=== PATIENT | female | born 1950 | race Caucasian/White ===

== ENCOUNTER 2017-08-05 22:22 | Observation (INO) | payer MEDICARE ==
[2017-08-05 23:14] LABS: #Eosinphils 0.2 thou/uL (0.0-0.7); #Lymphocytes 1.7 thou/uL (1.20-3.40); #Monocytes 0.5 thou/uL (0.11-0.59); #Neutrophils 4.7 thou/uL (1.40-6.50); %Basophils 0.4 % (0.0-1.0); %Eosinophils 3.1 % (0.0-10.0); %Lymphocytes 24.1 % (21.0-51.0); %Monocytes 7.1 % (0.0-10.0); %Neutrophils 65.3 % (42.0-75.0); Hemoglobin 13.3 g/dL (12.0-16.0); Mean Corpuscular HGB CONC 34.3 g/dL (32.0-36.0); Mean Corpuscular Hemoglobin 30.6 pg (27.0-31.0); Mean Corpuscular Volume 89.2 fl (81.0-99.0); Mean Platelet Volume 7.7 fL (7.4-10.4); Platelet Count 183 thou/uL (130-400); RBC Distribution Width 12.2 % (11.5-14.5); Red Blood Cell (RBC) Count 4.34 mill/uL (4.20-5.40); White Blood Cell (WBC) Count 7.2 thou/uL (4.8-10.8)
--- NOTE | 2017-08-05 23:22 | CT ---
CT OF THE BRAIN WITHOUT CONTRAST: Comparison: 01-15-16 History: Head numbness that started tonight. The patient has been feeling strange for three days. Technique: Multiple contiguous axial images were obtained in a CT of the brain without contrast. FINDINGS: The brain is normal in morphology and attenuation without focal lesions or confluent areas of infarct ion. There is no evidence of hydrocephalus, intracranial hemorrhage, or extraaxial fluid collection. The calvarium and overlying soft tissues are unremarkable. The visualized paranasal sinuses and masto id air cells are well aerated. IMPRESSION: No evidence of acute intracranial abnormality. POS: [facility]
[2017-08-05 23:34] LABS: ALT (SGPT) 18 U/L (8-55); AST (SGOT) 19 U/L (5-34); Albumin 4.1 g/dL (3.4-4.8); Alkaline Phosphatase 132 U/L (40-150); Anion Gap 13 mmol/L (10-20); BUN (Urea Nitrogen) 13 mg/dL (9.8-20.1); Bilirubin, Total 0.4 mg/dL (0.2-1.2); Calc. Creatinine Clearance 0 mL/min (70-130); Calcium 9.2 mg/dL (7.8-10.44); Carbon Dioxide 24 mmol/L (23-31); Chloride 107 mmol/L (98-107); Estimated GFR-MDRD 62; Glucose 91 mg/dL (80-115); Protein, Total 7.1 g/dL (6.0-8.3); Sodium 140 mmol/L (136-145)
[2017-08-05 23:36] LABS: CKMB 1.3 ng/mL (0-6.6); Troponin I Less than 0.010 ng/mL (< 0.028)
[2017-08-06 01:32] LABS: Bilirubin Negative (Negative); Blood, Urine Negative (Negative); Clarity CLEAR (Clear); Glucose, Urine (Dipstick) Negative (Negative); Leukocyte Trace (Negative); Nitrite Negative (Negative); Protein, Urine (Dipstick) Negative (Neg-Trace); Specific Gravity, Urine 1.014 (1.002-1.036)
[2017-08-06 01:34] LABS: Bacteria/HPF None Seen HPF (None Seen); Hyaline Casts/LPF 0-3 HYALINE CAST LPF (0-3 Hyaline); RBC/HPF 0-3 HPF (0-3); Squamous Epithelial 0-3 HPF (0-3); WBC/HPF 0-3 HPF (0-3)
[2017-08-06] MEDS ORDERED: Guaifenesin DM 100-10/5 ML UDCUP PO PRN (01:42)
[2017-08-06] MEDS ORDERED: PROVENTIL INHALER 6.7 G (200 INHALATIONS) INH PRN (01:42)
[2017-08-06] MEDS ORDERED: clonazePAM 1 MG TAB PO PRN (01:42)
[2017-08-06] MEDS ORDERED: Acetaminophen 325 MG TAB PO PRN (01:42)
[2017-08-06] MEDS ORDERED: traMADol HCl 50 MG TAB PO PRN (01:42)
[2017-08-06] MEDS ORDERED: Senokot 8.6 MG TAB PO PRN (01:42)
--- NOTE | 2017-08-06 02:38 | HP ---
REASON FOR ADMISSION: Rule out transient ischemic attack. HISTORY OF PRESENTING ILLNESS: The patient gives history of having neck pain with radiating to right shoulder yesterday morning. She tried to lay down for some time. After she woke up with pretty bad headache. This was on the right half of her head. The headache was off and on. When the headache was off she was feeling numb. The patient also developed some right lower extremity pain. This was in the knee and going down to the legs. She has no complaints of any specific weakness at present. Her headache is completely resolved. She is moving all 4 extremities with no weakness as such. The patient is right- handed. No complaints of nausea or vomiting. No complaints of chest pain, palpitation, PND or orthopnea. No complaints of fever. PAST MEDICAL AND SURGICAL HISTORY: History of TIA, dyslipidemia, appendectomy, cholecystectomy, hypothyroidism, mood disorder, history of gastric bypass surgery, has had knee surgery. CURRENT MEDICATIONS: Plavix 75 mg p.o. daily, pravastatin daily, levothyroxine 100 mcg daily, Klonopin p.r.n. for anxiety, bupropion, methylphenidate, the exact doses of about 2, she does not recall. ALLERGIES: AMBIEN and SULFA. PERSONAL HISTORY: Does not abuse alcohol or drugs. No history of smoking. FAMILY HISTORY: Mother of renal cell carcinoma. Father was killed in a freak accident at the age of 51 years. Brother of renal cell carcinoma at the age of 61 years. REVIEW OF SYSTEMS: The following complete review of systems was negative, unless otherwise mentioned in the HPI or below: Constitutional: Weight loss or gain, ability to conduct usual activities. Skin: Rash, itching. Eyes: Double vision, pain. ENT/Mouth: Nose bleeding, neck stiffness, pain, tenderness. Cardiovascular: Palpitations, dyspnea on exertion, orthopnea. Respiratory: Shortness of breath, wheezing, cough, hemoptysis, fever or night sweats. Gastrointestinal: Poor appetite, abdominal pain, heartburn, nausea, vomiting, constipation, or diarrhea. Genitourinary: Urgency, frequency, dysuria, nocturia. Musculoskeletal: Pain, swelling. Neurologic/Psychiatric: Anxiety, depression. Allergy/Immunologic: Skin rash, bleeding tendency. PHYSICAL EXAMINATION: GENERAL: The patient is a 67-year-old female, who is currently not in any acute distress. VITAL SIGNS: Blood pressure 160/90, pulse 90 per minute, respiratory rate 18 per minute, temperature 98.3 degrees Fahrenheit, saturating 96% on room air. NECK: Supple with no elevated JVD. HEENT: Eyes: Extraocular muscles intact. Pupils reacting to light. Oral cavity: Mucous membranes are moist. No exudates or congestion. CARDIOVASCULAR: S1, S2 heard. Regular rhythm. RESPIRATORY: Air entry 1+ bilaterally. No rales or rhonchi. ABDOMEN: Soft, bowel sounds heard. No tenderness, rigidity or guarding. EXTREMITIES: No peripheral edema or calf tenderness. VASCULAR SYSTEM: Peripheral pulses 1+ bilateral. No ischemic ulcerations or gangrene. CENTRAL NERVOUS SYSTEM: No gross focal deficits seen. The patient is alert, awake, oriented well. PSYCHIATRIC: The patient's mood is euthymic. No hallucinations or delusions. LABORATORY AND X-RAY FINDINGS: EKG done shows normal sinus rhythm at 61 beats per minute. There is nonspecific ST-T wave changes. CT brain without contrast done shows no acute intracranial abnormalities. First set of cardiac enzymes are negative. Electrolytes are stable. BUN 13, creatinine 0.9, glucose 91. Liver enzymes within normal limits. White count of 7, H and H 13 and 38, platelet count 183, MCV is 89 with 65% neutrophils. CLINICAL IMPRESSION AND PLAN: The patient will be under observation on the stroke unit to rule out transient ischemic attack. All her symptoms that she came for including headache, right lower extremity pain, right shoulder pain all of it has resolved at present. The plan is to ambulate her this morning once physical therapy and occupational therapy are available. If patient ambulates by herself, she can be discharged home. Otherwise, we will continue her on Plavix, aspirin, pravastatin, that she takes at home. We will also continue her mood disorder medications including bupropion, Klonopin and it is unclear why she takes methylphenidate, but the patient does not know if she has attention deficit hyperactivity disorder. We will continue to closely monitor her on the stroke unit. [facility]
[2017-08-06 02:55] VITALS: BMI 32.3
[2017-08-06 05:47] LABS: #Basophils 0.1 thou/uL (0.0-0.2); #Eosinphils 0.2 thou/uL (0.0-0.7); #Lymphocytes 1.9 thou/uL (1.20-3.40); #Monocytes 0.5 thou/uL (0.11-0.59); %Basophils 0.9 % (0.0-1.0); %Eosinophils 3.1 % (0.0-10.0); %Lymphocytes 28.8 % (21.0-51.0); %Monocytes 8.1 % (0.0-10.0); %Neutrophils 59.2 % (42.0-75.0); Hemoglobin 12.7 g/dL (12.0-16.0); Mean Corpuscular HGB CONC 34.4 g/dL (32.0-36.0); Mean Corpuscular Hemoglobin 30.6 pg (27.0-31.0); Mean Corpuscular Volume 89.2 fl (81.0-99.0); Platelet Count 180 thou/uL (130-400); RBC Distribution Width 12.2 % (11.5-14.5); Red Blood Cell (RBC) Count 4.15 mill/uL (4.20-5.40); White Blood Cell (WBC) Count 6.7 thou/uL (4.8-10.8)
[2017-08-06 06:17] LABS: Anion Gap 12 mmol/L (10-20); BUN (Urea Nitrogen) 12 mg/dL (9.8-20.1); Calc. Creatinine Clearance 96 mL/min (70-130); Calcium 9.1 mg/dL (7.8-10.44); Carbon Dioxide 25 mmol/L (23-31); Cardiac Risk 3.1 (Less than 4.5); Chloride 107 mmol/L (98-107); Cholesterol 132 mg/dl (< 200 Desired); Estimated GFR-MDRD 75; Glucose 89 mg/dL (80-115); HDL Cholesterol 43 mg/dL (>60 Neg Risk); LDL Cholesterol, Calculated 72 mg/dL; Potassium 3.5 mmol/L (3.5-5.1); Sodium 140 mmol/L (136-145); Triglycerides 86 mg/dL (Less than 150)
[2017-08-06] MEDS ORDERED: DULoxetine 60 MG CAP PO SCH (09:00)
[2017-08-06] MEDS ORDERED: Enoxaparin Sodium 40 MG/0.4 ML SYRINGE SC SCH ×2 (09:00)
[2017-08-06] MEDS ORDERED: Bupropion 150 MG XL TAB PO SCH (09:00)
[2017-08-06] MEDS ORDERED: Clopidogrel Bisulfate 75 MG TAB PO SCH (09:00)
[2017-08-06] MEDS ORDERED: Prevnar 13-Val Conj/PF 0.5 ML SYRINGE IM ONE (09:00)
[2017-08-06] MEDS ORDERED: METHYLPHENIDATE HCL 20 MG PO SCH (09:00)
[2017-08-06] MEDS ORDERED: Aspirin 81 mg Enteric Coated Tablet PO SCH (09:00)
[2017-08-06 15:51] VITALS: BP 160/73; TEMP 96.7
[2017-08-06] MEDS ORDERED: Simvastatin 5 MG TAB PO SCH (21:00)
--- NOTE | 2017-09-08 15:03 | EKG ---
Test Reason : HEAD NUMBNESS Blood Pressure : / mmHG Vent. Rate : 081 BPM Atrial Rate : 081 BPM P-R Int : 162 ms QRS Dur : 076 ms QT Int : 364 ms P-R-T Axes : 040 -11 028 degrees QTc Int : 422 ms Normal sinus rhythm Cannot rule out Anterior infarct , age undetermined Abnormal ECG Confirmed by FATOU ALVES ([id number]), copy editor ESRA CARDONA ([id number]) on 09/08/2017 3:02:28 PM Referred By: Confirmed By:FATOU ALVES
== END 2017-08-06 18:33 | disposition home or self-care (01) ==
LOC: ERS 22:22 → 2SE 08-06 00:15
PROVIDERS: ADMIT Internal Medicine; ATTEND Internal Medicine
DX: G45.9 Transient cerebral ischemic attack, unspecified (principal); E78.5 Hyperlipidemia, unspecified; E03.9 Hypothyroidism, unspecified; F39 Unspecified mood [affective] disorder; F41.9 Anxiety disorder, unspecified; Z88.2 Allergy status to sulfonamides; Z88.8 Allergy status to other drugs, medicaments and biological substances; Z79.899 Other long term (current) drug therapy; Z98.84 Bariatric surgery status; Z90.49 Acquired absence of other specified parts of digestive tract; Z98.890 Other specified postprocedural states; Z86.73 Personal history of transient ischemic attack (TIA), and cerebral infarction without residual deficits
CPT/HCPCS: 70450; 80048; 80053; 80061; 82553; 84484; 85025 ×2; 90670; 93005; 96372; 97116; 97139 ×3; 97530; 99285; G0009; G0378; G8978; G8979; G8980; G8987; G8988; G8989; 36415; 81003; 81015; 90471; G8996-GN-CI; G8997-GN-CI; J1650

== ENCOUNTER 2018-02-13 00:16 | Emergency (ER) | payer MEDICARE ==
[2018-02-13 01:09] LABS: #Eosinphils 0.3 thou/uL (0.0-0.7); #Lymphocytes 1.1 thou/uL (1.20-3.40); #Monocytes 0.8 thou/uL (0.11-0.59); #Neutrophils 6.1 thou/uL (1.40-6.50); %Basophils 0.5 % (0.0-1.0); %Eosinophils 3.9 % (0.0-10.0); %Lymphocytes 13.2 % (21.0-51.0); %Neutrophils 73.3 % (42.0-75.0); Hemoglobin 13.4 g/dL (12.0-16.0); Mean Corpuscular HGB CONC 35.1 g/dL (32.0-36.0); Mean Corpuscular Hemoglobin 30.7 pg (27.0-31.0); Mean Corpuscular Volume 87.4 fL (78.0-98.0); Mean Platelet Volume 7.6 fL (7.4-10.4); Platelet Count 186 thou/uL (130-400); RBC Distribution Width 12.1 % (11.5-14.5); Red Blood Cell (RBC) Count 4.37 mill/uL (4.20-5.40); White Blood Cell (WBC) Count 8.3 thou/uL (4.8-10.8)
[2018-02-13 01:25] LABS: ALT (SGPT) 32 U/L (8-55); AST (SGOT) 31 U/L (5-34); Alkaline Phosphatase 138 U/L (40-150); Anion Gap 14 mmol/L (10-20); BUN (Urea Nitrogen) 12 mg/dL (9.8-20.1); Bilirubin, Total 0.5 mg/dL (0.2-1.2); Calc. Creatinine Clearance 0 mL/min (70-130); Calcium 9.5 mg/dL (7.8-10.44); Carbon Dioxide 18 mmol/L (23-31); Chloride 111 mmol/L (98-107); Estimated GFR-MDRD 66; Glucose 107 mg/dL (80-115); Potassium 3.5 mmol/L (3.5-5.1); Sodium 139 mmol/L (136-145)
--- NOTE | 2018-02-13 07:51 | ULT ---
ULTRASOUND WITH DOPPLER DUPLEX VENOUS LOWER EXTREMITY BILATERAL: CPT: 66854 ICD-10-PCS: B54D HISTORY: Lower extremity pain. TECHNIQUE: Color flow Doppler, spectral waveform analysis of pulsed Doppler, and plasencia-scale imaging with pennie david and augmentation, were used to evaluate the bilateral common femoral, femoral, popliteal, dexigraph operator ior tibial, and superficial femoral, veins; and the proximal portions of the profunda femoral and gre ater saphenous, veins. FINDINGS: There is appropriate compressibility and flow within the imaged deep vein system of each lower extrem ity without evidence of DVT. IMPRESSION: No deep vein thrombosis of either visualized lower extremity. POS: [facility]
--- NOTE | 2018-02-13 08:08 | RAD ---
RIGHT KNEE 4 VIEWS: HISTORY: Right knee pain. FINDINGS: There are postop changes of total knee arthroplasty in good position and alignment. No fracture, dis location or bony destruction is seen. No periprosthetic lucency is identified to suggest loosening. IMPRESSION: No acute process. POS: [facility]
== END 2018-02-13 02:40 | disposition home or self-care (01) ==
LOC: ERS 00:16
DX: M25.561 Pain in right knee (principal); E78.5 Hyperlipidemia, unspecified; Z86.73 Personal history of transient ischemic attack (TIA), and cerebral infarction without residual deficits; E03.9 Hypothyroidism, unspecified; J45.909 Unspecified asthma, uncomplicated; F41.9 Anxiety disorder, unspecified; F31.9 Bipolar disorder, unspecified; Z79.899 Other long term (current) drug therapy
CPT/HCPCS: 36415; 80053; 85025; 93970

== ENCOUNTER 2018-08-05 22:47 | Observation (INO) | payer MEDICARE, OTHER ==
[2018-08-05 23:27] LABS: #Basophils 0.1 thou/uL (0.0-0.2); #Eosinphils 0.2 thou/uL (0.0-0.7); #Lymphocytes 1.6 thou/uL (1.20-3.40); #Monocytes 0.7 thou/uL (0.11-0.59); #Neutrophils 4.8 thou/uL (1.40-6.50); %Basophils 0.7 % (0.0-1.0); %Eosinophils 2.2 % (0.0-10.0); %Lymphocytes 21.5 % (21.0-51.0); %Monocytes 10.1 % (0.0-10.0); %Neutrophils 65.5 % (42.0-75.0); Hemoglobin 13.8 g/dL (12.0-16.0); Mean Corpuscular HGB CONC 33.4 g/dL (32.0-36.0); Mean Corpuscular Hemoglobin 29.5 pg (27.0-31.0); Mean Corpuscular Volume 88.5 fL (78.0-98.0); Platelet Count 203 thou/uL (130-400); RBC Distribution Width 12.2 % (11.5-14.5); Red Blood Cell (RBC) Count 4.67 mill/uL (4.20-5.40); White Blood Cell (WBC) Count 7.3 thou/uL (4.8-10.8)
--- NOTE | 2018-08-05 23:39 | RAD ---
AP VIEW CHEST: 08/05/2018 HISTORY: Dyspnea. FINDINGS: AP view chest demonstrates calcification of the aorta. The lungs are well aerated. No evidence of a ctive intrathoracic disease is seen. No evidence of effusions, pneumonia, or pneumothorax is seen. IMPRESSION: Unremarkable anterior-posterior view chest. POS: [facility]
--- NOTE | 2018-08-05 23:43 | CT ---
CT BRAIN: 08/05/2018 HISTORY: Fall. Weakness. Lightheadedness. COMPARISON: 08/05/2017 TECHNIQUE: Noncontrast enhanced CT images of the brain are obtained. FINDINGS: Noncontrast enhanced CT images of the brain demonstrate diffuse cortical atrophy. No evidence of acu te intracranial masses, hemorrhages, or strokes seen. IMPRESSION: Unremarkable CT brain. POS: [facility]
[2018-08-05 23:45] LABS: ALT (SGPT) 11 U/L (8-55); AST (SGOT) 18 U/L (5-34); Albumin 4.1 g/dL (3.4-4.8); Alkaline Phosphatase 139 U/L (40-150); Anion Gap 12 mmol/L (10-20); BUN (Urea Nitrogen) 12 mg/dL (9.8-20.1); Bilirubin, Total 0.3 mg/dL (0.2-1.2); Calc. Creatinine Clearance 0 mL/min (70-130); Calcium 9.2 mg/dL (7.8-10.44); Carbon Dioxide 23 mmol/L (23-31); Chloride 109 mmol/L (98-107); Estimated GFR-MDRD 73; Globulin 2.9 g/dL (2.4-3.5); Glucose 76 mg/dL (80-115); Sodium 140 mmol/L (136-145)
[2018-08-05 23:50] LABS: Bilirubin Negative (Negative); Blood, Urine Negative (Negative); Clarity CLEAR (Clear); Glucose, Urine (Dipstick) Negative (Negative); Leukocyte Negative (Negative); Nitrite Negative (Negative); Protein, Urine (Dipstick) Negative (Neg-Trace); Specific Gravity, Urine 1.014 (1.002-1.036)
[2018-08-06] MEDS ORDERED: Aspirin Chewable 81 MG TAB ONE (00:22)
[2018-08-06 02:47] LABS: Troponin I Less than 0.010 ng/mL (< 0.028)
[2018-08-06 05:50] LABS: Troponin I 0.011 ng/mL (< 0.028)
[2018-08-06] MEDS ORDERED: PROVENTIL INHALER 6.7 G (200 INHALATIONS) INH PRN (11:54)
[2018-08-06] MEDS ORDERED: clonazePAM 1 MG TAB PO PRN (11:54)
[2018-08-06] MEDS ORDERED: Ondansetron ODT 4 MG TAB PO PRN (11:54)
[2018-08-06] MEDS ORDERED: Ondansetron PF 4 MG/2 ML Vial IVP PRN (11:54)
[2018-08-06] MEDS ORDERED: Acetaminophen 325 MG TAB PO PRN (11:54)
[2018-08-06] MEDS ORDERED: Ibuprofen 800 MG TAB PO PRN (11:54)
[2018-08-06 12:34] LABS: Cardiac Risk 2.7 (Less than 4.5)
[2018-08-06 12:51] LABS: Free T4 (Free Thyroxine) 1.2 ng/dL (0.70-1.48); Thyroid Stimulating Hormone 0.014 uIU/mL (0.35-4.94)
[2018-08-06 12:58] VITALS: BMI 30.7
[2018-08-06] MEDS: Acyclovir 400 mg Tablet PO SCH ×2 (15:37→20:50)
--- NOTE | 2018-08-06 16:22 | HP ---
PRIMARY CARE PHYSICIAN: Jose Andino MD CHIEF COMPLAINT: "I'm feeling weak and I fell and hit a brick wall." HISTORY OF PRESENT ILLNESS: Ms. Tilley is a pleasant 68-year-old female, who has a history of PTSD and hyperlipidemia as well as hypothyroidism. She was in her usual state of health until a few weeks ago. She says she has been having chest pain off and on. She says that she will have to take up to 6 aspirin in order to get rid of the pain. She says the pain usually starts when she is sitting down or watching TV. She describes it as a squeezing sensation and it can be very severe. Sometimes she has some shortness of breath with it as well and occasionally, she will feel an aching in her hand when it happens and she says sometimes it will start with her hand. She also feels a little dizzy and lightheaded with it as well. She says it can last up to an hour, but she will take aspirin every time in order to get rid of it. She says in addition to this happening, she has been feeling extremely weak and lightheaded and she says that last night, she was visiting her sister, who lives in an apartment what sounds like across the street and she said she was leaving her sister's apartment and she started suddenly feeling weak and then fell and hit a brick wall. She later says that she has had several other episodes of falling. She says she basically gets dizzy and lightheaded and would have to reach across and grab a hold of something. Other symptoms include diarrhea, she says for the last month. She says usually it will start off with stools being kind of soft and then she will have more and more stools, but then they become liquid and then just mucus. There is no blood in the stools and she does have some abdominal cramping. She says that she did have a colonoscopy about 2 years ago at [facility] [place] by Dr. Ryan and they had just seen some polyps and some hemorrhoids. She also complains of night sweats occasionally almost every night, however, and waking up through the night short of breath. She also complains of some dyspnea on exertion and increased swelling in her legs. She also complains of a "nonproductive cough" and this has been going on for off and on for some time. Also, we reviewed her medications and she had quite a few medications at least 3 or 4, which were sedating medications, which have been recommended not to be used in elderly patients. REVIEW OF SYSTEMS: All systems were reviewed and are negative except for that mentioned in the history of present illness. PAST MEDICAL HISTORY: Significant for transient ischemic attack, hyperlipidemia, hypothyroidism, mood disorder, PTSD, generalized anxiety, and she says other psychiatric diseases, which she does not know the names of. PAST SURGICAL HISTORY: Includes an appendectomy when she was 16 years old, cholecystectomy, gastric bypass and it sounds like a redo of the gastric bypass and a Jon-en-Y in [place] and bilateral knee replacement surgeries. ALLERGIES: TO AMBIEN, WHICH CAUSES HER TO GO NUTS; SULFA, WHICH CAUSES ITCHING. SOCIAL HISTORY: She is . She has no children. She is a nonsmoker and nondrinker. She says she never smoke or drink or use any drugs. Her code status is full code. She is retired respiratory therapist. Her sister is her medical or her surrogate decision maker and her name is Do Moore. FAMILY HISTORY: Significant for mother with renal cell carcinoma as well as a brother, who had renal cell carcinoma as well. CURRENT MEDICATIONS: These were taken from two large bags in her room and include: 1. Zofran 40 mg daily. 2. Duloxetine 60 mg daily. 3. Plavix 75 mg daily. 4. VitaMelts once a day. 5. MegaRed and that is an omega-3 fatty acid daily. 6. Biotin daily. 7. Vitamin D3 125 mcg daily. 8. once a day. 9. Acyclovir 400 mg t.i.d. 10. Ibuprofen 800 mg as needed. 11. Prevagen. 12. Bupropion XL 300 mg daily. 13. Pravastatin 40 mg daily. 14. Trazodone 150 mg daily. 15. Clonazepam 1 mg t.i.d. 16. Ritalin, we did not have the dose, daily. PHYSICAL EXAMINATION: GENERAL: She is alert and oriented. She appears to be in no acute distress. She is well-developed and well-nourished. VITAL SIGNS: Blood pressure is 167/85, heart rate 80, respiratory rate of 16, temperature is 97.8. HEENT: Her pupils, the left pupil was slightly smaller than the right, and the pupil was a bit irregular on funduscopic exam. There is no papilledema. Her tympanic membrane on the left is slightly erythematous, but there is no fluid behind the drum. There is no bulging throat. She is edentulous and there is no erythema. NECK: There is no adenopathy, no bruits. LUNGS: Her lungs are clear to auscultation bilaterally. There is no wheezing, no rales, no rhonchi. CARDIOVASCULAR: She had a normal S1, S2. There is no S3 or S4. No murmurs, clicks, or rubs. ABDOMEN: Obese. There is a midline abdominal scar. There is some mild diffuse tenderness. There is no rebound or guarding. No organomegaly. EXTREMITIES: She has got multiple bruises on the lower extremities. There is no calf tenderness. She has got scar for knee replacement, but there is no joint effusion. NEUROLOGIC: Her cranial nerves 2 through 12 are grossly intact. Her muscle strength is 5/5 in both her upper and lower extremities. She was able to do her [id number]-me-pkyo, but she had some difficulty with finger to nose. There is no asterixis. SKIN AND INTEGUMENT: Again, there is some bruising on her lower extremities, but no significant edema. LABORATORY RESULTS AND X-RAY: She had a CT scan of the brain, which was negative for any acute intracranial process. She also had a chest x-ray, which by my reading, her heart size was normal. There were no infiltrates or effusions. On her labs, this was from 08/05/2018, the white blood cell count was 7.3, hemoglobin 13.8, hematocrit was 41.3, and platelet count was 203. Sodium 140, potassium 4.1, chloride was 109, CO2 was 23, BUN of 12, creatinine 0.78, glucose was 76. Urinalysis was negative. She had 3 sets of troponin, which were negative and on her EKG, it was sinus rhythm. She had some voltage criteria for LVH and there were some nonspecific ST-wave changes also by my reading. ASSESSMENT: This is a 68-year-old female, who presented to the emergency room with frequent falls, feeling generally weak, dizzy, lightheaded and also having some chest pain off and on. 1. With the frequent falls and generalized weakness. I suspect this is likely due to polypharmacy. She had multiple medications in her bag including the trazodone, clonazepam, bupropion, which can in elderly patients put them at risk for falls. She is on a fairly high dose of trazodone at night as well as the clonazepam. She is also on Ritalin, which she says she has not had for 3 weeks. I discussed with her that this is the likely cause of the falling and she should discuss this with her primary care physician, so that they can go through her medications and possibly reduce or eliminate some of these sedating medications. 2. Chest pain. She gives some symptoms, which are suspicious for possible angina. She states that she has not had a recent stress test. It is possible that if she had angina, this could result in some generalized weakness as well. Therefore, it seems reasonable to go ahead and get a nuclear stress test on her. 3. Hypothyroidism. We will check her TSH and free T4 and make sure that her thyroid functions are not contributing to her symptoms and we will also get a physical therapy evaluation. Otherwise, if her stress test is negative, then likely she can be discharged home with outpatient followup. Job ID: [id number]
[2018-08-06] MEDS: Calcium Carbonate + Vit D 250 MG TAB PO SCH (20:51)
[2018-08-06] MEDS: DULoxetine 60 MG CAP PO SCH (20:51)
[2018-08-06] MEDS ORDERED: Atorvastatin Calcium 10 MG TAB PO SCH (21:00)
[2018-08-06] MEDS ORDERED: TRETINOIN 0.05% TOP SCH (21:00)
[2018-08-06] MEDS ORDERED: traZODone HCl 150 MG TAB PO SCH (21:00)
[2018-08-07] MEDS ORDERED: Enoxaparin Sodium 40 MG/0.4 ML SYRINGE SC SCH (09:00)
[2018-08-07] MEDS ORDERED: Cyanocobalamin (Vitamin B-12) 1,000 MCG TAB PO SCH (09:00)
[2018-08-07] MEDS ORDERED: Bupropion 150 MG XL TAB PO SCH (09:00)
[2018-08-07] MEDS ORDERED: Clopidogrel Bisulfate 75 MG TAB PO SCH (09:00)
[2018-08-07] MEDS ORDERED: Levothyroxine Sodium 100 MCG TAB PO SCH (09:00)
[2018-08-07] MEDS ORDERED: ADENOSINE 60 MG/20 ML VIAL ONE (11:29)
[2018-08-07 12:51] VITALS: BP 117/56; TEMP 97.9
[2018-08-07] MEDS: DULoxetine 60 MG CAP PO SCH (13:08)
[2018-08-07] MEDS: Calcium Carbonate + Vit D 250 MG TAB PO SCH (13:08)
[2018-08-07] MEDS: Acyclovir 400 mg Tablet PO SCH ×2 (13:13→16:41)
--- NOTE | 2018-08-07 13:22 | NM ---
RADIONUCLIDE STRESS AND REST MYOCARDIAL PERFUSION SCAN WITH CT ATTENUATION CORRECTION AND SPECT IMAGI NG LEFT VENTRICULAR WALL MOTION EVALUATION AND EJECTION FRACTION: History: Chest pain. FINDINGS: Adenosine protocol. There is homogeneous uptake of radiotracer throughout the left ventricular myocar dium. No focal perfusion defect or reversibility. QGS analysis of gated SPECT images shows no focal w all motion abnormalities. Ejection fraction calculated at greater than 80%. IMPRESSION: Normal myocardial perfusion scan. Normal LVEF. POS: [facility]
--- NOTE | 2018-08-07 16:40 | DIS ---
DATE OF ADMISSION: 08/06/2018 DATE OF DISCHARGE: 08/07/2018 CONDITION: At the time of discharge, stable and improved. DISCHARGE DISPOSITION: Home. DISCHARGE MEDICATIONS: Remain the same as admission medication. The patient is taken off the Xanax and clonazepam. Please see H and P for extensive list. DISCHARGE DIAGNOSES: 1. Generalized weakness, likely due to polypharmacy. 2. History of post-traumatic stress disorder. 3. History of dyslipidemia. 4. Hypothyroidism. 5. Anxiety. PROCEDURES DONE IN HOSPITAL: CT scan of the brain upon presentation, which did not show an acute intracranial abnormality. Chest x-ray upon presentation was unremarkable. Nuclear medicine stress test, which shows EF of 80%. No ischemia or perfusion defect or reversibility. PRIMARY CARE PHYSICIAN: Dr. Jose Andino. HISTORY OF PRESENT ILLNESS: Ms. Tilley is a pleasant 68-year-old female with known history of multiple psychiatric issues as well as dyslipidemia and hypothyroidism, who presented to the emergency room with complaints of frequent falls and generalized weakness. She also had complaints of chronic on and off diarrhea. She was hemodynamically stable upon presentation and blood work and CT scan and chest x-ray were done, which were unremarkable. Three sets of cardiac enzymes were unremarkable. EKG was normal. She did have some complaints of chest pain as well. She was admitted for further evaluation and care. Please see admission history and physical for further details. HOSPITAL COURSE: The patient remained hemodynamically stable throughout the rest of her hospitalization. Serial cardiac enzymes were negative. Nuclear medicine stress test was done, which was negative as well. Her TSH was found to be low with normal free T4. Lipid panel was checked and it was unremarkable. Urinalysis did not show any evidence of infection. On the day of discharge, the patient is hemodynamically stable and all the workup has been negative. She was given option of home health, which she declined. She was seen and examined prior to discharge. PHYSICAL EXAMINATION: VITAL SIGNS: Temperature 97.9, pulse of 95, respirations 12, saturating 100% on room air, and blood pressure 117/56. GENERAL: No acute distress. Awake, alert, and oriented x3. She appears older than her stated age. HEENT: Mucous membrane is moist. CHEST: Clear to auscultation bilaterally. HEART: Rate and rhythm is regular. DISCHARGE INSTRUCTIONS: She is instructed to follow up with her primary care physician in 1 week and is given referral to Psychiatry, Dr. Justice [facility] at [facility] for her various psychiatric illnesses. Her home medication need to be adjusted as it seems like she is having a lot of symptoms because of polypharmacy and interactions among them. Her diagnosis also needs to be rechecked. The patient is unclear and has been on all of these medications for a long time without any clear diagnosis. Job ID: [id number]
[2018-08-09] MEDS ORDERED: Estradiol 0.01% Vaginal Cream 42.5 gm Tube VAG SCH (09:00)
--- NOTE | 2018-08-10 19:24 | EKG ---
Test Reason : Blood Pressure : / mmHG Vent. Rate : 080 BPM Atrial Rate : 081 BPM P-R Int : 140 ms QRS Dur : 072 ms QT Int : 362 ms P-R-T Axes : 119 -12 013 degrees QTc Int : 417 ms Normal sinus rhythm Minimal voltage criteria for LVH, may be normal variant Borderline ECG Confirmed by LUIS SOUSA DO ([id number]), editor managing newspaper SERA CARDONA ([id number]) on 08/10/2018 7:23:47 PM Referred By: Confirmed By:LUIS SOUSA DO
== END 2018-08-07 17:08 | disposition home or self-care (01) ==
LOC: ERS 22:47 → ERHOLD 08-06 00:33 → 2SW 08-06 12:19
PROVIDERS: ADMIT Hospitalist; ATTEND Hospitalist
DX: R53.1 Weakness (principal); F43.10 Post-traumatic stress disorder, unspecified; E78.5 Hyperlipidemia, unspecified; E03.9 Hypothyroidism, unspecified; F41.1 Generalized anxiety disorder; F39 Unspecified mood [affective] disorder; Z86.73 Personal history of transient ischemic attack (TIA), and cerebral infarction without residual deficits; Z90.49 Acquired absence of other specified parts of digestive tract; Z98.84 Bariatric surgery status; Z96.653 Presence of artificial knee joint, bilateral; Z88.8 Allergy status to other drugs, medicaments and biological substances; Z88.2 Allergy status to sulfonamides; Z91.018 Allergy to other foods; Z79.02 Long term (current) use of antithrombotics/antiplatelets; Z79.818 Long term (current) use of other agents affecting estrogen receptors and estrogen levels; Z79.899 Other long term (current) drug therapy
CPT/HCPCS: 70450; 71045; 78452; 80053; 80061; 81003; 83880; 84439; 84443; 84484 ×3; 85025; 93005; 93017; 94760; 96372; 97139 ×6; 99285; A9500; G0378 ×3; 36415; J0153; J1650

== ENCOUNTER 2019-04-13 22:11 | Emergency (ER) | payer MEDICARE ==
[2019-04-13 22:58] LABS: #Eosinphils 0.1 thou/uL (0.0-0.7); #Lymphocytes 1.7 thou/uL (1.20-3.40); #Monocytes 0.7 thou/uL (0.11-0.59); #Neutrophils 4.1 thou/uL (1.40-6.50); %Basophils 0.7 % (0.0-1.0); %Eosinophils 1.9 % (0.0-10.0); %Lymphocytes 25.5 % (21.0-51.0); %Monocytes 9.9 % (0.0-10.0); Hemoglobin 12.4 g/dL (12.0-16.0); Mean Corpuscular HGB CONC 34.2 g/dL (32.0-36.0); Mean Corpuscular Hemoglobin 30.2 pg (27.0-31.0); Mean Corpuscular Volume 88.3 fL (78.0-98.0); Platelet Count 196 thou/uL (130-400); RBC Distribution Width 12.2 % (11.5-14.5); White Blood Cell (WBC) Count 6.6 thou/uL (4.8-10.8)
[2019-04-13 23:18] LABS: ALT (SGPT) 21 U/L (8-55); AST (SGOT) 21 U/L (5-34); Albumin 3.7 g/dL (3.4-4.8); Alkaline Phosphatase 125 U/L (40-110); Anion Gap 8 mmol/L (10-20); BUN (Urea Nitrogen) 14 mg/dL (9.8-20.1); Bilirubin, Total 0.2 mg/dL (0.2-1.2); Calc. Creatinine Clearance 0 mL/min (70-130); Calcium 8.5 mg/dL (7.8-10.44); Carbon Dioxide 26 mmol/L (23-31); Chloride 105 mmol/L (98-107); Estimated GFR-MDRD 69; Globulin 2.7 g/dL (2.4-3.5); Glucose 84 mg/dL (80-115); Lipase 185 U/L (8-78); Protein, Total 6.4 g/dL (6.0-8.3); Sodium 135 mmol/L (136-145)
[2019-04-13 23:23] LABS: Bilirubin Negative (Negative); Blood, Urine Negative (Negative); Clarity Turbid (Clear); Glucose, Urine (Dipstick) Normal (Negative); Leukocyte Negative Leu/uL (Negative); Nitrite Negative (Negative); Protein, Urine (Dipstick) Negative (Neg-Trace); Urobilinogen Normal mg/dL (Less than 2)
--- NOTE | 2019-04-14 09:05 | CT ---
PRELIMINARY REPORT/[facility]/EMERGENCY AFTER HOURS PROCEDURE: PROCEDURE INFORMATION: Exam: CT Abdomen And Pelvis With Contrast Exam date and time: 04/14/2019 12:21 AM Clinical history: 69 years old, female; Abdominal pain; Patient HX: 69 y/o F, with h/o TIA, presents to ED C/O BP fluctuations. PT states her bld pressure tends to be well controlled with medications. S he states that her bld pressure has been fluctuating throughout the day, causing her concern for TIA. Associated with x 2-3 weeks of nausea and abd pain that is worse today. Associated with lightheadedn ess. No associated paresthesias TECHNIQUE: Imaging protocol: Computed tomography of the abdomen and pelvis with intravenous contrast. COMPARISON: No relevant prior studies available. FINDINGS: Mediastinum: A small hiatal hernia is noted. Liver: A small focus of calcification is seen in the right hepatic lobe. Gallbladder and bile ducts: The patient is status post cholecystectomy. Prominence of the common bile duct is likely related to status post cholecystectomy. Pancreas: Normal. No ductal dilation. Spleen: Scattered calcifications noted in the spleen, which could be secondary to remote prior granul omatous disease. Adrenals: Normal. No mass. Kidneys and ureters: Normal. No nephrolithiasis or hydronephrosis. Stomach and bowel: Surgical sutures seen in the stomach and the jejunum, which may left a gastric byp ass procedure. No evidence of bowel obstruction. Appendix: No evidence of appendicitis. Intraperitoneal space: Unremarkable. No free air. No significant fluid collection. Vasculature: Unremarkable. No abdominal aortic aneurysm. Lymph nodes: Unremarkable. No enlarged lymph nodes. Bladder: Unremarkable as visualized. Reproductive: Unremarkable as visualized. Bones/joints: A 1.8 cm sclerotic lesion in the left acetabulum is noted. Degenerative changes are not ed in the lumbar spine. Decreased vertebral body height involving the T11 vertebral body may be chron ic in nature. Correlate with prior imaging. Soft tissues: Unremarkable. IMPRESSION: 1. No evidence of acute abdominal pathology. 2. 1.8 cm sclerotic lesion in the left acetabulum. Correlate with prior imaging for stability. Thank you for allowing us to participate in the care of your patient. Dictated and Authenticated by: Cher Carbajal MD 04/14/2019 1:01 AM Central Time ([place] & [place]) FINAL REPORT EMERGENT AFTER HOURS CT OF THE ABDOMEN AND PELVIS WITH CONTRAST: FINDINGS/IMPRESSION: I agree with the findings and impression given in the preliminary report per [facility] physician. No ralph dence of acute intraabdominal/pelvic abnormality. POS: [facility]
== END 2019-04-14 01:35 | disposition home or self-care (01) ==
LOC: ERS 22:11
DX: I10 Essential (primary) hypertension (principal); E78.5 Hyperlipidemia, unspecified; Z86.73 Personal history of transient ischemic attack (TIA), and cerebral infarction without residual deficits; E03.9 Hypothyroidism, unspecified; J45.909 Unspecified asthma, uncomplicated; F41.9 Anxiety disorder, unspecified; F42.9 Obsessive-compulsive disorder, unspecified; Z79.899 Other long term (current) drug therapy; Z79.82 Long term (current) use of aspirin
CPT/HCPCS: 36415; 74177; 80053; 81003; 83690; 85025; 93005

== ENCOUNTER 2019-06-07 13:33 | Emergency (ER) | payer MEDICARE ==
[2019-06-07 14:28] LABS: #Basophils 0.1 thou/uL (0.0-0.2); #Eosinphils 0.2 thou/uL (0.0-0.7); #Lymphocytes 1.3 thou/uL (1.20-3.40); #Monocytes 0.6 thou/uL (0.11-0.59); #Neutrophils 3.7 thou/uL (1.40-6.50); %Basophils 1.1 % (0.0-1.0); %Eosinophils 3.5 % (0.0-10.0); %Monocytes 9.6 % (0.0-10.0); %Neutrophils 63.9 % (42.0-75.0); Hemoglobin 12.1 g/dL (12.0-16.0); Mean Corpuscular HGB CONC 31.9 g/dL (32.0-36.0); Mean Corpuscular Hemoglobin 28.5 pg (27.0-31.0); Mean Corpuscular Volume 89.1 fL (78.0-98.0); Mean Platelet Volume 8.3 fL (7.4-10.4); Platelet Count 176 thou/uL (130-400); RBC Distribution Width 12.3 % (11.5-14.5); Red Blood Cell (RBC) Count 4.24 mill/uL (4.20-5.40); White Blood Cell (WBC) Count 5.8 thou/uL (4.8-10.8)
[2019-06-07 14:50] LABS: ALT (SGPT) 15 U/L (8-55); AST (SGOT) 18 U/L (5-34); Albumin 3.6 g/dL (3.4-4.8); Alkaline Phosphatase 125 U/L (40-110); Anion Gap 13 mmol/L (10-20); BUN (Urea Nitrogen) 13 mg/dL (9.8-20.1); Bilirubin, Total 0.4 mg/dL (0.2-1.2); Calc. Creatinine Clearance 0 mL/min (70-130); Calcium 8.4 mg/dL (7.8-10.44); Carbon Dioxide 19 mmol/L (23-31); Chloride 111 mmol/L (98-107); Estimated GFR-MDRD 68; Globulin 2.6 g/dL (2.4-3.5); Glucose 105 mg/dL (80-115); Magnesium 2.2 mg/dL (1.6-2.6); Potassium 4.4 mmol/L (3.5-5.1); Protein, Total 6.2 g/dL (6.0-8.3); Sodium 139 mmol/L (136-145)
[2019-06-07 16:22] LABS: Troponin I Less than 0.010 ng/mL (< 0.028)
[2019-06-07 17:14] LABS: Bilirubin Negative (Negative); Blood, Urine Negative (Negative); Clarity Clear (Clear); Glucose, Urine (Dipstick) Normal (Negative); Leukocyte Negative Leu/uL (Negative); Nitrite Negative (Negative); Protein, Urine (Dipstick) Negative (Neg-Trace)
== END 2019-06-07 17:28 | disposition home or self-care (01) ==
LOC: ERS 13:33
DX: R42 Dizziness and giddiness (principal); E78.5 Hyperlipidemia, unspecified; E03.9 Hypothyroidism, unspecified; J45.909 Unspecified asthma, uncomplicated; F41.9 Anxiety disorder, unspecified; Z79.899 Other long term (current) drug therapy
CPT/HCPCS: 36415; 80053; 81003; 83735; 84443; 84484; 85025; 93005

== ENCOUNTER 2019-07-18 20:43 | Emergency (ER) | payer MEDICARE ==
--- NOTE | 2019-07-18 21:50 | RAD ---
RADIOGRAPH CHEST 2 VIEWS: DATE: 07/18/2019 HISTORY: 69-year-old female with dyspnea FINDINGS: There is no airspace density, pulmonary edema, pleural effusion, pneumothorax, or cardiomegaly. IMPRESSION: No acute cardiopulmonary findings.
[2019-07-18 21:52] LABS: #Eosinphils 0.2 thou/uL (0.0-0.7); #Lymphocytes 1.8 thou/uL (1.20-3.40); #Neutrophils 7.1 thou/uL (1.40-6.50); %Basophils 0.5 % (0.0-1.0); %Eosinophils 1.8 % (0.0-10.0); %Monocytes 9.7 % (0.0-10.0); Mean Corpuscular HGB CONC 33.7 g/dL (32.0-36.0); Mean Corpuscular Hemoglobin 29.4 pg (27.0-31.0); Mean Corpuscular Volume 87.4 fL (78.0-98.0); Mean Platelet Volume 8.2 fL (7.4-10.4); Platelet Count 250 thou/uL (130-400); RBC Distribution Width 12.3 % (11.5-14.5); Red Blood Cell (RBC) Count 5.08 mill/uL (4.20-5.40); White Blood Cell (WBC) Count 10.1 thou/uL (4.8-10.8)
[2019-07-18 22:06] LABS: ALT (SGPT) 19 U/L (8-55); AST (SGOT) 23 U/L (5-34); Albumin 4.3 g/dL (3.4-4.8); Alkaline Phosphatase 150 U/L (40-110); Anion Gap 15 mmol/L (10-20); BUN (Urea Nitrogen) 21 mg/dL (9.8-20.1); Bilirubin, Total 0.4 mg/dL (0.2-1.2); Calc. Creatinine Clearance 0 mL/min (70-130); Calcium 9.3 mg/dL (7.8-10.44); Carbon Dioxide 20 mmol/L (23-31); Chloride 105 mmol/L (98-107); Estimated GFR-MDRD 49; Globulin 3.2 g/dL (2.4-3.5); Glucose 105 mg/dL (80-115); Potassium 4.2 mmol/L (3.5-5.1); Protein, Total 7.5 g/dL (6.0-8.3); Sodium 136 mmol/L (136-145)
[2019-07-19 00:41] LABS: Troponin I 0.016 ng/mL (< 0.028)
== END 2019-07-19 00:56 | disposition home or self-care (01) ==
LOC: ERS 20:43
DX: R06.00 Dyspnea, unspecified (principal); R07.9 Chest pain, unspecified; E78.5 Hyperlipidemia, unspecified; M19.90 Unspecified osteoarthritis, unspecified site; E03.9 Hypothyroidism, unspecified; F41.9 Anxiety disorder, unspecified; F31.9 Bipolar disorder, unspecified; F42.9 Obsessive-compulsive disorder, unspecified; F03.90 Unspecified dementia, unspecified severity, without behavioral disturbance, psychotic disturbance, mood disturbance, and anxiety; J45.909 Unspecified asthma, uncomplicated; F43.10 Post-traumatic stress disorder, unspecified; Z79.82 Long term (current) use of aspirin; Z79.899 Other long term (current) drug therapy
CPT/HCPCS: 36415; 71046; 80053; 83880; 84484; 85025; 93005

== ENCOUNTER 2025-03-04 15:24 | Emergency (ER) | payer OTHER ==
[2025-03-04] MEDS ORDERED: Bacitracin 1 PK ONE (15:38)
== END 2025-03-04 15:47 | disposition home or self-care (01) ==
LOC: ERS 15:24
DX: S61.211D Laceration without foreign body of left index finger without damage to nail, subsequent encounter (principal); W26.9XXD Contact with unspecified sharp object(s), subsequent encounter

== ENCOUNTER 2025-06-11 10:30 | Emergency (ER) | payer OTHER, SELFPAY ==
[2025-06-11 11:55] LABS: CAUTI Indications for Culture Pelvic or flank pain; Glucose, Urine (Dipstick) Normal (Negative); Leukocyte 500 Leu/uL (Negative); Protein, Urine (Dipstick) Negative (Neg-Trace); RBC/HPF 0-3 HPF (0-3); Specific Gravity, Urine 1.017 (1.002-1.036); WBC/HPF 21-50 HPF (0-3)
[2025-06-11 11:56] LABS: Bacteria/HPF 1+ HPF (None Seen); Urine Culture Reflex Yes Yes
[2025-06-11] MEDS ORDERED: Acetaminophen 325 MG TAB ONE (12:52)
[2025-06-11] MEDS ORDERED: cefTRIAXone (ROCEPHIN) 500 MG VIAL ONE (14:24)
[2025-06-11 14:50] LABS: #Basophils 0.07 10x3/uL (0.0-0.2); #Eosinophils 0.12 10x3/uL (0.0-0.7); #Monocytes 0.78 10x3/uL (0.11-0.59); #Neutrophils 2.92 10x3/uL (1.40-6.50); %Basophils 1.3 % (0.0-1.0); %Eosinophils 2.2 % (0.0-10.0); %Lymphocytes 29.0 % (21.0-51.0); %Monocytes 14.2 % (0.0-10.0); %Neutrophils 53.1 % (42.0-75.0); Hematocrit 35.9 % (36.0-47.0); Hemoglobin 11.8 g/dL (12.0-16.0); Mean Corpuscular Hemoglobin 27.7 pg (27.0-31.0); Mean Corpuscular Volume 84.3 fL (78.0-98.0); Platelet Count 196 10x3/uL (130-400); Red Blood Cell (RBC) Count 4.26 mill/uL (4.20-5.40); White Blood Cell (WBC) Count 5.49 10x3/uL (4.8-10.8)
[2025-06-11 15:10] LABS: ALT (SGPT) 27 U/L (Less than 34); AST (SGOT) 43 U/L (11-34); Albumin 4.1 g/dL (3.1-4.5); Alkaline Phosphatase 143 U/L (40-110); Anion Gap 8 mmol/L (10-20); BUN (Urea Nitrogen) 16 mg/dL (9.8-20.1); Bilirubin, Total 0.4 mg/dL (0.3-1.2); Calc. Creatinine Clearance 0 mL/min (70-130); Calcium 9.1 mg/dL (7.8-10.44); Carbon Dioxide 22 mmol/L (23-31); Chloride 106 mmol/L (98-107); Globulin 3.6 g/dL (2.4-3.5); Glucose 60 mg/dL (83-110); Lipase 19 U/L (8-78); Potassium 3.6 mmol/L (3.5-5.1); Sodium 132 mmol/L (136-145)
== END 2025-06-11 15:35 | disposition home or self-care (01) ==
LOC: ERS 10:30
DX: S52.122A Displaced fracture of head of left radius, initial encounter for closed fracture (principal); N10 Acute pyelonephritis; M54.50 Low back pain, unspecified; X50.0XXA Overexertion from strenuous movement or load, initial encounter; Y93.89 Activity, other specified; Z86.73 Personal history of transient ischemic attack (TIA), and cerebral infarction without residual deficits
CPT/HCPCS: 29125; 80053; 81001; 83690; 85025; 87086; 96365; J0696